=== PATIENT | female | born 1945 | race African-American/Black ===

== ENCOUNTER 2017-01-08 21:34 | Emergency (ER) | payer OTHER ==
[2017-01-08 21:55] VITALS: BP 127/79; PULSE 87; TEMP 99.3; BMI 40.4
[2017-01-08] MEDS ORDERED: ONDANSETRON 4 MG/2 ML VIAL IVPUSH STA (22:39)
--- NOTE | 2017-01-08 22:40 | PDOC ---
History of Present Illness - General History Source: Patient Exam Limitations: No Limitations - History of Present Illness Initial Comments: 01/08/17 22:42 Patient is a 71 year old female with a significant past medical history of angina, DM, and hypertension who presents to the ED with lightheadedness, nausea and vomiting for 1 day. Patient also reports discomfort to the right side of the face and neck. She denies any abdominal pain just reports abdominal discomfort due to chronic nausea today. She denies any chest pain, SOB, room spinning sensation or ringing in the ears. PCP - Dr. Yuri Oleary Spray Worker - Dr. Aaron <Trixie Ty - Last Filed: 01/08/17 23:44> - General History Source: Patient <EricLong webster - Last Filed: 01/09/17 00:40> - General Chief Complaint: Nausea/Vomiting Stated Complaint: NAUSEA/VOMITING Time Seen by Provider: 01/08/17 22:38 Past History <Trixie Ty - Last Filed: 01/08/17 23:44> - Past Medical History Cardiac Disorders: Yes (ANGINA) Diabetes: Yes HTN: Yes Suicide Attempt (Hx): No - Psycho/Social/Smoking Cessation Hx Anxiety: No Suicidal Ideation: No Smoking Status: No Smoking History: Never smoked Have you smoked in the past 12 months: No Number of Cigarettes Smoked Daily: 0 Information on smoking cessation initiated: No Hx Alcohol Use: No Drug/Substance Use Hx: No Substance Use Type: None <Long Mukherjee - Last Filed: 01/09/17 00:40> - Past Medical History Allergies/Adverse Reactions: Allergies Allergy/AdvReac Type Severity Reaction Status Date / Time povidone-iodine Allergy Severe Swelling Verified 01/08/17 21:55 [From Betadine] soap [From Betadine] Allergy Severe Swelling Verified 01/08/17 21:55 Home Medications: Ambulatory Orders Aspirin Coated [Ecotrin] 81 mg PO DAILY 10/03/11 Cholecalciferol (Vitamin D3) [Vitamin D] 2,000 mg PO DAILY 10/03/11 Ezetimibe [Zetia] 10 mg PO HS 10/03/11 Levothyroxine [Synthroid] 50 mcg PO DAILY 10/03/11 Metoprolol Succinate [Toprol XL] 25 mg PO HS 10/03/11 [place]-3 Fatty Acids/Fish Oil [Fish Oil 1,000 mg Softgel] 1,000 mg PO DAILY 10/03 Ramipril [Altace] 2.5 mg PO DAILY 10/03/11 Rosuvastatin [Crestor -] 10 mg PO DAILY 01/08/17 Amox-Tr/K Cl [Augmentin 875Mg Tablet] 1 tab PO BID #20 tablet 01/09/17 Ibuprofen 800 mg PO TID #30 tablet 01/09/17 Review of Systems - Review of Systems Able to Perform ROS?: Yes Comments:: 01/08/17 22:42 CONSTITUTIONAL: Absent: fever, chills, diaphoresis, generalized weakness, malaise, loss of appetite HEENT: Absent: rhinorrhea, nasal congestion, throat pain, throat swelling, difficulty swallowing, mouth swelling, ear pain, eye pain, visual Changes CARDIOVASCULAR: Present: lightheadedness Absent: chest pain, syncope, palpitations, irregular heart rate, peripheral edema RESPIRATORY: Absent: cough, shortness of breath, dyspnea with exertion, orthopnea, wheezing, stridor, hemoptysis GASTROINTESTINAL: Present: abdominal discomfort, nausea, vomiting Absent: abdominal pain, abdominal distension, diarrhea, constipation, melena, hematochezia GENITOURINARY: Absent: dysuria, frequency, urgency, hesitancy, hematuria, flank pain, genital pain MUSCULOSKELETAL: Absent: myalgia, arthralgia, joint swelling SKIN: Absent: rash, itching, pallor HEMATOLOGIC/IMMUNOLOGIC: Absent: easy bleeding, easy bruising, lymphadenopathy, frequent infections ENDOCRINE: Absent: unexplained weight gain, unexplained weight loss, heat intolerance, cold intolerance NEUROLOGIC: Absent: headache, focal weakness or paresthesias, dizziness, unsteady gait, seizure, mental status changes, bladder or bowel incontinence PSYCHIATRIC: Absent: anxiety, depression, suicidal or homicidal ideation, hallucinations. <Trixie Ty - Last Filed: 01/08/17 23:44> *Physical Exam - Vital Signs Last Vital Signs Temp Pulse Resp BP Pulse Ox 99.3 F 87 18 127/79 99 01/08/17 21:51 01/08/17 21:51 01/08/17 21:51 01/08/17 21:51 01/08/17 21:51 - Physical Exam Comments: 01/08/17 22:43 GENERAL: Well developed, well nourished. Awake and alert. In no acute distress. HEENT: Normocephalic, atraumatic. PERRLA, EOMI. No conjunctival pallor. Sclerae are non -icteric. Moist mucous membranes. Oropharynx is clear. NECK: Supple. Full ROM. No JVD. Carotid pulses 2+ and symmetric, without bruits. No thyromegaly. No lymphadenopathy. CARDIOVASCULAR: Regular rate and rhythm. No murmurs, rubs, or gallops. Distal pulses are 2+ and symmetric. PULMONARY: No evidence of respiratory distress. Lungs clear to auscultation bilaterally. No wheezing, rales or rhonchi. ABDOMINAL: Soft. Non-tender. Non-distended. No rebound or guarding. No organomegaly. Normoactive bowel sounds. MUSCULOSKELETAL Normal range of motion at all joints. No bony deformities or tenderness. No CVA tenderness. EXTREMITIES: No cyanosis. No clubbing. No edema. No calf tenderness. SKIN: Warm and dry. Normal capillary refill. No rashes. No jaundice. NEUROLOGICAL: Alert, awake, appropriate. Cranial nerves 2-12 intact. No deficits to light touch and temperature in face, upper extremities and lower extremities. No motor deficits in the in face, upper extremities and lower extremities. Normoreflexic in the upper and lower extremities. Normal speech. Toes are downgoing bilaterally. PSYCHIATRIC: Cooperative. Good eye contact. Appropriate mood and affect. <Trixie Ty - Last Filed: 01/08/17 23:44> - Vital Signs Last Vital Signs Temp Pulse Resp BP Pulse Ox 99.3 F 87 18 127/79 99 01/08/17 21:51 01/08/17 21:51 01/08/17 21:51 01/08/17 21:51 01/08/17 21:51 <Long Mukherjee - Last Filed: 01/09/17 00:40> Heart Score/ECG Review #1 01/08/17 23:44 Sinus rhythm at 66 bpm with premature atrial complexes with aberrant conduction Moderate voltage criteria for LVH, may be normal varient Nonspecific T wave abnormality <Trixie Ty - Last Filed: 01/08/17 23:44> ED Treatment Course - LABORATORY CBC & Chemistry Diagram: 01/08/17 22:42 01/08/17 22:42 <Trixie Ty - Last Filed: 01/08/17 23:44> - LABORATORY CBC & Chemistry Diagram: 01/08/17 22:42 01/08/17 22:42 <Long Mukherjee - Last Filed: 01/09/17 00:40> Medical Decision Making - Medical Decision Making 01/09/17 00:39 Dr. Mukherjee: The scribe's documentation has been prepared under my direction and personally reviewed by me in its entirery. I confirm that the note above accurately reflects all work, treatment, procedures, and medical decision making performed by me. <Long Mukherjee - Last Filed: 01/09/17 00:40> *DC/Admit/Observation/Transfer - Attestations Scribe Attestion: 01/08/17 22:43 Documentation prepared by MALATHI Rao, acting as medical affairs specialist for Long Mukherjee DO. <Trixie Ty - Last Filed: 01/08/17 23:44> - Discharge Dispostion Admit: No <Long Muhkerjee - Last Filed: 01/09/17 00:40> Diagnosis at time of Disposition: Sinusitis Qualifiers: Sinusitis location: maxillary Chronicity: unspecified Qualified Code(s): J32.0 - Chronic maxillary sinusitis - Discharge Dispostion Disposition: HOME Condition at time of disposition: Stable - Referrals Referrals: Yuri Oleary MD [Primary Care Provider] - - Patient Instructions Printed Discharge Instructions: DI for Sinusitis
[2017-01-08] MEDS ORDERED: ONDANSETRON 4 MG/2 ML VIAL ONE (22:43)
[2017-01-08 22:59] LABS: BASOPHIL 0.5 % (0-2.0); EOSINOPHIL 0.5 % (0-4.5); MCHC 32.9 g/dl (32.0-36.0); MEAN PLT VOLUME 7.9 fl (7.5-11.1); NEUTROPHILS 85.6 % (42.8-82.8); PLATELET COUNT 246 K/MM3 (134-434); RDW 13.9 % (11.6-15.6); WHITE BLOOD COUNT 8.3 K/mm3 (4.0-10.0)
[2017-01-08 23:08] LABS: INR 1.07 (0.82-1.09); PROTHROMBIN TIME (PATIENT) 11.8 SEC (9.98-11.88)
[2017-01-08 23:18] LABS: ALBUMIN 3.9 g/dl (3.4-5.0); ANION GAP 9 (8-16); BILIRUBIN,TOTAL 0.6 mg/dL (0.2-1.0); CALCIUM 8.8 mg/dL (8.5-10.1); CO2 26 mmol/L (21-32); COCKROFT - GAULT 112.4295; CREATININE 0.7 mg/dL (0.55-1.02); GLUCOSE,RANDOM 114 mg/dL (74-106); SGOT/AST 12 U/L (15-37); SGPT/ALT 20 U/L (12-78)
[2017-01-08 23:22] LABS: ALK PHOS 62 U/L (45-117); TROPONIN I < 0.02 ng/ml (0.00-0.05)
[2017-01-09] MEDS ORDERED: IBUPROFEN 400 MG TABLET (FP) PO ONE ×2 (00:38→00:41)
[2017-01-09] MEDS ORDERED: AMOX TR/POT CLAV 875MG/125MG TABLETS (FP) PO STA (00:38)
--- NOTE | 2017-01-09 12:47 | EKG ---
Test Reason : Blood Pressure : / mmHG Vent. Rate : 066 BPM Atrial Rate : 066 BPM P-R Int : 178 ms QRS Dur : 088 ms QT Int : 420 ms P-R-T Axes : 017 -27 042 degrees QTc Int : 440 ms SINUS RHYTHM WITH motion artifacts MODERATE VOLTAGE CRITERIA FOR LVH, MAY BE NORMAL VARIANT NONSPECIFIC T WAVE ABNORMALITY ABNORMAL ECG WHEN COMPARED WITH ECG OF 03-OCT-2011 08:52, ABERRANT CONDUCTION IS NOW PRESENT VENT. RATE HAS DECREASED BY 34 BPM Confirmed by KRISHNA DÍAZ, KATT ([id number]) on 01/09/2017 12:47:14 PM Referred By: Confirmed By:KATT KELLER MD
== END 2017-01-09 00:50 | disposition home or self-care (01) ==
LOC: SUPCPDRO 21:34 → JER 21:34
PROC: 3E033GC Introduction of Other Therapeutic Substance into Peripheral Vein, Percutaneous Approach (ICD-10-PCS; principal; 2017-01-08)
DX: J32.0 Chronic maxillary sinusitis (principal); I10 Essential (primary) hypertension; E11.9 Type 2 diabetes mellitus without complications
CPT/HCPCS: 36415; 70450-TC; 70486-TC; 71010-TC; 80053; 82550; 83690; 83735; 83880; 84484; 85025; 85610; 86850; 86900; 86901; 93005; 93010; 99283-25

== ENCOUNTER → 2018-10-29 | Day surgery (SDC) | payer OTHER ==
--- NOTE | 2018-10-30 15:03 | PATH ---
Surgical Pathology Report Patient Name: RENNY MATTHEWS [facility]. Rec. #: [id number] /Age/Gender: 1945 (Age: 73) / F Account: [id number] Location: [facility] Taken: 10/29/2018 Received: 10/29/2018 Reported: 10/30/2018 Physicians: Dorina Patterson M.D. Specimen(s) Received A: BREAST, RIGHT B: BREAST, RIGHT Clinical History Mammographic findings: Suspicious, highly suspicious/malignant Final Diagnosis A. BREAST, RIGHT, WITH CALCIFICATIONS, STEREOTACTIC CORE BIOPSY: DUCTAL CARCINOMA IN SITU (DCIS), LOW NUCLEAR GRADE, CRIBRIFORM AND MICROPAPILLARY TYPES, WITH ASSOCIATED MICROCALCIFICATIONS. B. BREAST, RIGHT, WITHOUT CALCIFICATIONS, STEREOTACTIC CORE BIOPSY: DUCTAL CARCINOMA IN SITU (DCIS), LOW NUCLEAR GRADE, CRIBRIFORM AND MICROPAPILLARY TYPES, WITH ASSOCIATED MICROCALCIFICATIONS. Comment: ER/FL/HER2 pending and will be reported separately. Findings discussed with Dr. Patterson. Electronically Signed Rubina Cervantes M.D. Gross Description A. Received in formalin labeled "right breast with calcification," are 6 chavarria-yellow, cylindrical portions of fibroadipose tissue ranging from 0.5-2.5 cm in length and averaging 0.3 cm in diameter. The specimens are submitted in toto in one cassette. B. Received in formalin labeled "right breast without calcifications," are 3 chavarria-yellow, cylindrical portions of fibroadipose tissue ranging from 0.4-1.4 cm in length and averaging 0.3 cm in diameter. The specimens are submitted in toto in one cassette. Time to formalin fixation: 5 minutes Total formalin fixation time: Approximately 6 hours. 10/29/2018 [facility]10/29/2018
== END | disposition home or self-care (01) ==
LOC: FMAMMOTONE 11:29 → MERGE 11:29
PROVIDERS: ATTEND Surgery
PROC: 0HBT3ZX Excision of Right Breast, Percutaneous Approach, Diagnostic (ICD-10-PCS; principal; 2018-10-29)
DX: D05.11 Intraductal carcinoma in situ of right breast (principal); N64.89 Other specified disorders of breast; R92.8 Other abnormal and inconclusive findings on diagnostic imaging of breast
CPT/HCPCS: 19081; 88305-TC; 88342-TC

== ENCOUNTER 2019-01-02 08:07 | Day surgery (SDC) | payer OTHER ==
[2019-01-01 09:01] VITALS: BMI 37.8
[2019-01-02] MEDS ORDERED: LIDOCAINE HCL 1%, 10 MG/ML (20ML VIAL) NR ONE ×2 (10:38)
[2019-01-02] MEDS ORDERED: LIDOCAINE HCL 1%, 10 MG/ML (20ML VIAL) ONE (10:57)
[2019-01-02] MEDS ORDERED: ceFAZolin SODIUM 1 GM VIAL ONE (11:03)
[2019-01-02] MEDS ORDERED: ceFAZolin 2 GRAM PREMIX BAG IVPB ONE (11:05)
[2019-01-02] MEDS ORDERED: ePHEDrine SULFATE 50 MG/1 ML AMPULE ONE (11:27)
[2019-01-02] MEDS ORDERED: KETOROLAC TROMETHAMINE 30 MG/1 ML VIAL ONE (11:42)
[2019-01-02] MEDS ORDERED: MIDAZOLAM HCL 2 MG/2 ML SINGLE DOSE VIAL ONE (11:52)
[2019-01-02] MEDS ORDERED: oxyCODONE HCL 5 MG TABLET PO PRN (12:02)
[2019-01-02] MEDS ORDERED: ONDANSETRON 4 MG/2 ML VIAL IVPUSH PRN (12:02)
[2019-01-02] MEDS ORDERED: LACTATED RINGERS SOLUTION 1,000 ML IV SCH (12:15)
[2019-01-02 13:52] VITALS: TEMP 98
--- NOTE | 2019-01-02 14:07 | OP ---
DATE OF OPERATION: 01/02/2019 PREOPERATIVE DIAGNOSIS: Right breast ductal carcinoma in situ. POSTOPERATIVE DIAGNOSIS: Right breast ductal carcinoma in situ. PROCEDURE: A right breast wide-localized lumpectomy. SURGEON: Dorina Alejandro MD ANESTHESIA: General. ESTIMATED BLOOD LOSS: Minimal. COMPLICATIONS: None. This is a sterile procedure. . Patient presented with a screening mammography that noted calcifications anteriorly in the upper outer right breast. A needle biopsy showed DCIS. My recommendation was a lumpectomy. The procedure discussed with all the questions answered. PROCEDURE IN DETAIL: Patient brought to [facility] in [place]. Taken down to Breast Imaging where a wire was used to localize the calcifications in the upper outer right breast. She was then brought to the operating room. After induction of general anesthesia and IV antibiotics, the right breast was prepped in the usual sterile fashion. The area in the upper outer breast was anesthetized with 1% lidocaine. A radial incision was made in the upper outer right breast and a wire was used as a guide to get down to the area of interest, which was excised en bloc, tagged with a long stitch lateral, short stitch superior, sent as a right breast lumpectomy for specimen radiograph. Grossly, I felt I was close with the wire superiorly. Therefore, I took a new superior margin with a strip of the old margin. This specimen was sent to Pathology for permanent section. The specimen radiograph showed the clip and wire to be intact within the specimen. This was sent to Pathology for permanent section, as well. Hemostasis assured with electrocautery. interrupted 2-0 Vicryl. Skin approximated with interrupted 3-0 Vicryl and running 4-0 Prolene. A sterile dressing with Tegaderm, 4 x 4's applied. She tolerated procedure well, and was extubated on the operating room table, and taken to recovery in good condition. DORINA ALEJANDRO M.D. [id number]
[2019-01-02 14:41] VITALS: BP 122/74; PULSE 77
[2019-01-02] MEDS ORDERED: metoPROLOL SUCCINATE 25 MG TAB.SR.24H (FP) PO SCH (22:00)
[2019-01-02] MEDS ORDERED: EZETIMIBE 10 MG TABLET (FP) PO SCH (22:00)
[2019-01-02] MEDS ORDERED: ROSUVASTATIN CA 10 MG TABLET (FP) PO SCH (22:00)
[2019-01-03] MEDS ORDERED: LEVOTHYROXINE NA 50 MCG TABLET (FP) PO SCH (07:00)
[2019-01-03] MEDS ORDERED: metFORMIN HCL 500 MG TABLET (FP) PO SCH (07:00)
[2019-01-03] MEDS ORDERED: RAMIPRIL 2.5 MG CAPSULE (FP) PO SCH (10:00)
[2019-01-03] MEDS ORDERED: CHOLECALCIFEROL (VITAMIN D3) 1,000 UNIT TABLET (FP) PO SCH (10:00)
--- NOTE | 2019-01-08 11:16 | PATH ---
Surgical Pathology Report Patient Name: RENNY MATTHEWS [facility]. Rec. #: [id number] /Age/Gender: 1945 (Age: 73) / F Account: [id number] Location: [facility] Taken: 01/02/2019 Received: 01/02/2019 Reported: 01/08/2019 Physicians: Dorina Patterson M.D. Specimen(s) Received A: RIGHT BREAST LUMPECTOMY B: RIGHT BREAST NEW SUPERIOR MARHGIN Clinical History DCIS Final Diagnosis A. BREAST, RIGHT, LUMPECTOMY: DUCTAL CARCINOMA IN SITU (DCIS), CRIBRIFORM AND MICROPAPILLARY TYPES, INTERMEDIATE NUCLEAR GRADE WITH FOCAL NECROSIS AND ASSOCIATED MICROCALCIFICATIONS, PRESENT IN THREE OF THIRTEEN SLIDES (3/13). DCIS RANGES IN SIZE FROM 3 MM TO 7 MM IN GREATEST MICROSCOPIC DIMENSION. DCIS IS <1MM FROM SUPERIOR AND 3 MM FROM DEEP MARGINS. SEE SPECIMEN B FOR FINAL MARGINS. REMAINDER OF BREAST PARENCHYMA SHOWS PROLIFERATIVE FIBROCYSTIC CHANGES INCLUDING STROMAL FIBROSIS, MICROCYSTS, AND CYSTIC APOCRINE METAPLASIA. PRIOR BIOPSY SITE CHANGES ARE PRESENT. PATHOLOGIC STAGE (pTNM): pTis pNx. SEE CASE SUMMARY BELOW. B. BREAST, RIGHT, NEW SUPERIOR MARGIN, EXCISION: BENIGN BREAST TISSUE. Comments DCIS of the Breast: Surgical Pathology Cancer Case Summary (Based on AJCC TNM 8 th edition) Procedure _X__ Excision (less than total mastectomy) Specimen Laterality _X__ Right Size (Extent) of DCIS Estimated size (extent) of DCIS (greatest dimension using gross and microscopic evaluation): at least (millimeters): 7 mm Number of blocks with DCIS: 3 Number of blocks examined: 22 Histologic Type _X__ Ductal carcinoma in situ Architectural Patterns _X__ Cribriform _X__ Micropapillary Nuclear Grade _X__ Grade II (intermediate) Necrosis _X__ Present, focal (small foci or single cell necrosis) Margins _X__ Uninvolved by DCIS <1 mm from superior margin in lumpectomy (A), negative in final margin (B). Specify closest margin: Superior Regional Lymph Nodes _X__ No lymph nodes submitted or found Pathologic Stage Classification (pTNM, AJCC 8th Edition) Primary Tumor (pT) _X__ pTis (DCIS): Ductal carcinoma in situ Regional Lymph Nodes (pN) _X__ pNx: Regional lymph nodes cannot be assessed. Microcalcifications _X__ Present in DCIS ER/TN pending. Results will be signed out as an addendum. Electronically Signed Rubina Cervantes M.D. Addendum Reported: 01/09/2019 Addendum Diagnosis Results of Estrogen Receptor (ER) and Progesterone Receptor (TN) studies performed on block "A4" at [facility] are as follows: ER (clone [id number] mouse monoclonal antibody by [employer]): ~90-95% nuclear staining with weak to moderate intensity (Positive). TN (clone16 mouse monoclonal antibody by [employer]): ~5% nuclear staining with weak intensity (Low Positive). Positive and negative controls (internal if applicable) show appropriate results. Formalin fixation and cold ischemic times are within current ASCO/CAP recommendations for ER, TN and Her2 testing. Rubina Cervantes M.D. Gross Description A. Received fresh on an AccuGrid, labeled "right breast lumpectomy" is a 6 x 4 x 2 cm. chavarria-yellow, irregular, portion of fibroadipose tissue with a needle localization wire present. There is a short suture marking the superior aspect and a long suture marking the lateral aspect, per the surgeon. There is no skin or nipple present. The specimen is inked as follows: superior and lateral -blue; inferior -green; medial- yellow; anterior- red; deep- black. The specimen is serially sectioned from medial to lateral. Sectioning reveals a focal indurated, hemorrhagic lesion which measure 0.5 x 0.5 x 0.4, 0.5 from posterior and 1 cm from superior and lateral margins. Remainder of margins are widely free. The specimen is submitted entirely in 13 cassettes as follows: 1-lateral margin, 4-6- hemorrhagic indurated lesion, 12-13- medial margin. Total formalin fixation time: Approximately7 hours B. Received in formalin labeled "right breast new superior margin," is a 5 x 4 x 2 cm portion of fibroadipose tissue with a suture marking the biopsy cavity side, per the surgeon. The new margin is inked blue and the specimen is serially sectioned. Cut surface is fatty and grossly unremarkable. The specimen is entirely and sequentially submitted in 9 cassettes. MLSZ/01/02/2019 sanml/01/02/2019
== END 2019-01-02 14:40 | disposition home or self-care (01) ==
LOC: JASU-SURG 08:07
PROVIDERS: ATTEND Surgery
PROC: 0HBT0ZZ Excision of Right Breast, Open Approach (ICD-10-PCS; principal; 2019-01-02 11:00)
DX: D05.11 Intraductal carcinoma in situ of right breast (principal)
CPT/HCPCS: 19281; 82962; 88307-TC; 88309-TC; 94760

== ENCOUNTER 2022-11-04 18:00 | Emergency (ER) | payer OTHER ==
[2022-11-04 18:09] VITALS: BP 134/72; PULSE 85; RESP 18; TEMP 98; BMI 35.5
[2022-11-04] MEDS ORDERED: ACETAMINOPHEN 500 MG TABLET (FP) PO ONE (18:54)
[2022-11-04] MEDS ORDERED: ACETAMINOPHEN 500 MG TABLET (FP) ONE (19:02)
== END 2022-11-04 20:45 | disposition home or self-care (01) ==
LOC: JERFT 18:00 → JER 18:00 → JERFT 20:45
DX: S09.90XA Unspecified injury of head, initial encounter (principal); W22.8XXA Striking against or struck by other objects, initial encounter
CPT/HCPCS: 70450-TC; 72125-TC; 99284-25